=== PATIENT | male | born 1980 | race African-American/Black ===

== ENCOUNTER 2017-10-28 20:25 | Emergency (ER) | payer SELFPAY ==
[~2017-10-28] VITALS: Ht 172.7 cm; Wt 77.1 kg
--- NOTE | 2017-10-28 20:58 | NUR ---
LT EYE 20/15 RT EYE20/20
[2017-10-28] MEDS ORDERED: TETRACAINE HCL 0.5% OPHT DROP 2 ML BOTTLE OP ONE (21:00)
[2017-10-28] MEDS ORDERED: FLUORESCEIN SODIUM 1 MG STRIP OP ONE (21:00)
--- NOTE | 2017-10-28 21:10 | NUR ---
AT PT BEDSIDE FOR MSE
--- NOTE | 2017-10-28 21:15 | NUR ---
PT PROVIDED HEATPACK PER APPROVAL FOR PT COMFORT
[2017-10-28] MEDS ORDERED: TETRACAINE HCL 0.5% OPHT DROP 2 ML BOTTLE ONE (21:18)
[2017-10-28] MEDS ORDERED: FLUORESCEIN SODIUM 1 MG STRIP ONE (21:20)
[2017-10-28] MEDS ORDERED: IBUPROFEN 600 MG TABLET PO ONE (21:45)
[2017-10-28] MEDS ORDERED: IBUPROFEN 600 MG TABLET ONE (22:01)
--- NOTE | 2017-10-28 22:30 | NUR ---
Patient discharged to home in stable conditon. Written and verbal after care instructions given. Patient verbalizes understanding of instructions.
[2017-10-28 22:49] VITALS: BP 156/94
== END 2017-10-28 22:49 | disposition home or self-care (01) ==
LOC: ER 20:27
DX: H01.006 Unspecified blepharitis left eye, unspecified eyelid (principal)
CPT/HCPCS: 99284; A4663

== ENCOUNTER 2018-09-23 11:41 | Emergency (ER) | payer MEDICAID, OTHER ==
[~2018-09-23] VITALS: Ht 172.7 cm; Wt 77.1 kg
[2018-09-23] MEDS ORDERED: AZITHROMYCIN 250 MG TABLET ONE (12:07)
[2018-09-23] MEDS ORDERED: LIDOCAINE HCL 1% 20 ML VIAL ONE (12:07)
[2018-09-23] MEDS ORDERED: CEFTRIAXONE 500 MG VIAL ONE (12:08)
[2018-09-23] MEDS ORDERED: CEFTRIAXONE 500 MG VIAL IM ONE (12:15)
[2018-09-23] MEDS ORDERED: AZITHROMYCIN 250 MG TABLET PO ONE (12:15)
[2018-09-23 12:17] LABS: *BILIRUBIN,URIN NEGATIVE (NEGATIVE); *BLOOD, URINE Trace-intact (NEGATIVE); *CLARITY,URINE CLEAR (CLEAR); *COLOR,URINE YELLOW (YELLOW); *KETONES,URINE NEGATIVE (NEGATIVE); *PROTEIN,URINE NEGATIVE (NEGATIVE); *UROBILINOGEN,URINE 0.2 E.U./dl (NORMAL); LEUKOCYTE ESTERASE ,URINE NEGATIVE (NEGATIVE); NITRITE, URINE NEGATIVE (NEGATIVE); PH,URINE 5.5 (5.0-8.0); UGLUCOSE NEGATIVE (NEGATIVE)
[2018-09-23 12:20] LABS: BACTERIA,URINE FEW /HPF (NONE SEEN); RBC,URINE NONE SEEN /HPF (0-3); SQUAMOUS EPITHELIAL CELL,UR FEW /HPF (NONE SEEN); WBC,URINE NONE SEEN /HPF (0-3)
[2018-09-23 13:01] VITALS: BP 113/84
--- NOTE | 2018-09-23 13:02 | NUR ---
Patient discharged to home in stable conditon. Written and verbal after care instructions given. Patient verbalizes understanding of instructions.
== END 2018-09-23 13:02 | disposition home or self-care (01) ==
LOC: ER 11:43
DX: M94.0 Chondrocostal junction syndrome [Tietze] (principal); Z20.2 Contact with and (suspected) exposure to infections with a predominantly sexual mode of transmission
CPT/HCPCS: 71045; 81001; 96372; 99284; J0696; J3490; A4663; Q0144

== ENCOUNTER 2018-12-13 12:01 | Emergency (ER) | payer OTHER ==
[~2018-12-13] VITALS: Ht 172.7 cm; Wt 77.1 kg
--- NOTE | 2018-12-13 12:15 | NUR ---
Dr Eldridge at the bedside for MSE.
--- NOTE | 2018-12-13 12:19 | NUR ---
Patient discharged to home in stable conditon. Written and verbal after care instructions given. Patient verbalizes understanding of instructions.PT WALKS IN STEADY GAIT.
== END 2018-12-13 12:22 | disposition home or self-care (01) ==
LOC: ER 12:01
DX: R09.82 Postnasal drip (principal); T78.40XA Allergy, unspecified, initial encounter
CPT/HCPCS: A4663

== ENCOUNTER 2019-07-01 08:58 | Emergency (ER) | payer OTHER ==
[~2019-07-01] VITALS: Ht 172.7 cm; Wt 77.1 kg
--- NOTE | 2019-07-01 09:13 | NUR ---
ABEL BOND AT BEDSIDE FOR MSE.
[2019-07-01] MEDS ORDERED: AZITHROMYCIN 250 MG TABLET ONE (09:25)
[2019-07-01] MEDS ORDERED: LIDOCAINE HCL 1% 20 ML VIAL ONE (09:25)
[2019-07-01] MEDS ORDERED: CEFTRIAXONE 500 MG VIAL ONE (09:26)
[2019-07-01] MEDS ORDERED: CEFTRIAXONE 500 MG VIAL IM ONE (09:30)
[2019-07-01] MEDS ORDERED: AZITHROMYCIN 250 MG TABLET PO ONE (09:30)
[2019-07-01 09:39] LABS: *BILIRUBIN,URIN NEGATIVE (NEGATIVE); *BLOOD, URINE NEGATIVE (NEGATIVE); *CLARITY,URINE CLEAR (CLEAR); *COLOR,URINE YELLOW (YELLOW); *KETONES,URINE NEGATIVE (NEGATIVE); *UROBILINOGEN,URINE 0.2 E.U./dl (NORMAL); LEUKOCYTE ESTERASE ,URINE NEGATIVE (NEGATIVE); NITRITE, URINE NEGATIVE (NEGATIVE); UGLUCOSE NEGATIVE (NEGATIVE)
--- NOTE | 2019-07-01 09:49 | NUR ---
Patient discharged to home in stable conditon. Written and verbal after care instructions given. Patient verbalizes understanding of instructions. ALL BELONGINGS W/ PT. PT SELF-AMBULATED W/O DIFFICULTY.
[2019-07-01 09:50] VITALS: BP 112/84
[2019-07-03 10:06] LABS: *GC NAA Negative (Negative); *TRIC.VAG. NAA Negative (Negative)
== END 2019-07-01 09:51 | disposition home or self-care (01) ==
LOC: ER 08:58
DX: Z20.2 Contact with and (suspected) exposure to infections with a predominantly sexual mode of transmission (principal); R39.15 Urgency of urination
CPT/HCPCS: 81001; 87086; 87491; 96372; 99283; J0696; J3490; A4663; Q0144

== ENCOUNTER 2019-07-08 11:21 | Emergency (ER) | payer OTHER ==
[~2019-07-08] VITALS: Ht 172.7 cm; Wt 77.1 kg
[2019-07-08 12:00] LABS: BASOPHILS # (AUTO) 0.1 K/uL (0.0-8.0); BASOPHILS % (AUTO) 0.8 % (0.0-2.0); EOSINOPHILS # (AUTO) 0.1 K/uL (0.0-0.7); EOSINOPHILS % (AUTO) 0.9 % (0.0-7.0); HEMATOCRIT 42.7 % (36.7-47.1); HEMOGLOBIN 14.5 g/dL (12.5-16.3); LYMPHOCYTES # (AUTO) 2.7 K/uL (20.0-40.0); LYMPHOCYTES % (AUTO) 36.7 % (20.5-51.5); MEAN CORPUSCULAR HEMOGLOBIN 31.5 uug (23.8-33.4); MEAN CORPUSCULAR HGB CONC 34 g/dL (32.5-36.3); MEAN CORPUSCULAR VOLUME 92.5 fL (73.0-96.2); MONOCYTES # (AUTO) 0.4 K/uL (2.0-10.0); MONOCYTES % (AUTO) 5.4 % (0.0-11.0); NEUTROPHILS # (AUTO) 4.2 K/uL (1.8-8.9); NEUTROPHILS % (AUTO) 56.2 % (38.5-71.5); PLATELET COUNT (AUTO) 295 K/uL (152-348); RED BLOOD CELL COUNT(AUTO) 4.61 MIL/uL (4.06-5.63); WHITE BLOOD COUNT (AUTO) 7.4 K/uL (3.6-10.2)
[2019-07-08 12:12] LABS: CREATININE 0.9 mg/dL (0.6-1.3)
[2019-07-08 12:23] LABS: BILIRUBIN,DIRECT 0.2 mg/dL (0.0-0.2); BILIRUBIN,TOTAL 0.7 mg/dL (0.2-1.0); TOTAL PROTEIN, SERUM 8.2 g/dL (6.4-8.2)
--- NOTE | 2019-07-08 12:59 | NUR ---
Patient discharged to home in stable conditon. Written and verbal after care instructions given. Patient verbalizes understanding of instructions.
== END 2019-07-08 13:00 | disposition home or self-care (01) ==
LOC: ER 11:25
DX: F43.9 Reaction to severe stress, unspecified (principal); R25.1 Tremor, unspecified
CPT/HCPCS: 36415; 70030-TC; 84443; 85025; 93005; A4663

== ENCOUNTER 2019-08-08 13:31 | Emergency (ER) | payer OTHER ==
[~2019-08-08] VITALS: Ht 172.7 cm; Wt 80.7 kg
--- NOTE | 2019-08-08 14:21 | NUR ---
Patient discharged to home in stable conditon. Written and verbal after care instructions given. Patient verbalizes understanding of instructions.
== END 2019-08-08 14:21 | disposition home or self-care (01) ==
LOC: ER 13:31
DX: B00.9 Herpesviral infection, unspecified (principal); B00.1 Herpesviral vesicular dermatitis
CPT/HCPCS: A4663

== ENCOUNTER 2019-11-16 17:15 | Emergency (ER) | payer OTHER ==
[~2019-11-16] VITALS: Ht 172.7 cm; Wt 76.2 kg
[2019-11-16] MEDS ORDERED: CEFTRIAXONE 500 MG VIAL IM ONE (18:00)
[2019-11-16] MEDS ORDERED: METRONIDAZOLE 500 MG TABLET PO ONE (18:00)
[2019-11-16] MEDS ORDERED: AZITHROMYCIN 250 MG TABLET PO ONE (18:00)
[2019-11-16 18:10] LABS: *BILIRUBIN,URIN NEGATIVE (NEGATIVE); *BLOOD, URINE NEGATIVE (NEGATIVE); *CLARITY,URINE CLEAR (CLEAR); *COLOR,URINE LIGHT YELLOW (YELLOW); *KETONES,URINE NEGATIVE (NEGATIVE); *UROBILINOGEN,URINE 0.2 E.U./dl (NORMAL); LEUKOCYTE ESTERASE ,URINE NEGATIVE (NEGATIVE); NITRITE, URINE NEGATIVE (NEGATIVE); UGLUCOSE NEGATIVE (NEGATIVE)
[2019-11-16] MEDS ORDERED: LIDOCAINE HCL 1% 20 ML VIAL ONE (18:17)
[2019-11-16] MEDS ORDERED: CEFTRIAXONE 500 MG VIAL ONE (18:17)
[2019-11-16] MEDS ORDERED: METRONIDAZOLE 500 MG TABLET ONE (18:17)
[2019-11-16] MEDS ORDERED: AZITHROMYCIN 250 MG TABLET ONE (18:17)
--- NOTE | 2019-11-16 18:27 | NUR ---
Patient discharged to home in stable condition with brisk steady gait. Written and verbal after care instructions given to patient. Patient verbalized understanding & compliance of instructions.
[2019-11-19 08:06] LABS: *GC NAA Negative (Negative); *TRIC.VAG. NAA Negative (Negative)
== END 2019-11-16 18:28 | disposition home or self-care (01) ==
LOC: ER 17:20
DX: Z20.2 Contact with and (suspected) exposure to infections with a predominantly sexual mode of transmission (principal)
CPT/HCPCS: 81001; 87491; 96372; 99283; J0696; J3490; A4663; Q0144